=== PATIENT | male | born 1945 | race American Indian/Alaskan Native ===

== ENCOUNTER 2017-06-29 12:20 | Inpatient (IN) | payer MEDICARE, MEDICAID ==
[~2017-06-29] VITALS: Ht 182.9 cm; Wt 71.4 kg
[~2017-06-29 12:20] MED LIST: ASPI-612 PO; ATEN-169 PO; ATOR20TA PO; CLOP75TA35 PO; HCTZ25T PO; LISI10TA4 PO; NITR0.4T51 SL
[2017-06-29] MEDS ORDERED: LIDOcaine 5% patch TP ONE (12:50)
[2017-06-29] MEDS ORDERED: acetaminophen 325mg tablet PO ONE (12:50)
[2017-06-29 13:29] LABS: BASOPHILS % (AUTO) 0.5 % (0-1); EOSINOPHILS # (AUTO) 0.2 X10'3 (0-0.9); EOSINOPHILS % (AUTO) 1.7 % (0-6); HEMATOCRIT 39.7 % (42.0-52.0); HEMOGLOBIN 13.9 g/dl (14.0-17.9); LYMPHOCYTES # (AUTO) 0.9 X10'3 (1.1-4.8); LYMPHOCYTES % (AUTO) 10.4 % (21-51); MEAN CORPUSCULAR HEMOGLOBIN 31.8 PG (27.0-31.0); MEAN CORPUSCULAR HGB CONC 34.9 % (33.0-36.5); MEAN CORPUSCULAR VOLUME 91.1 FL (78-98); MEAN PLATELET VOLUME 7.5 FL (7.4-10.4); MONOCYTES # (AUTO) 0.7 X10'3 (0-0.9); MONOCYTES % (AUTO) 7.3 % (2-12); NEUTROPHILS # (AUTO) 7.3 X10'3 (1.8-7.7); NEUTROPHILS % (AUTO) 80.1 % (42-75); PLATELET COUNT 216 X10'3 (140-440); RED BLOOD COUNT 4.36 X10'6 (4.70-6.10); RED CELL DISTRIBUTION WIDTH 14.8 % (11.5-14.5); WHITE BLOOD COUNT 9.1 X10'3 (4.5-11.0)
[2017-06-29 13:45] LABS: ALANINE AMINOTRANSFERASE 27 U/L (12-78); ALBUMIN 3.2 G/DL (3.4-5.0); ALBUMIN/GLOBULIN RATIO 0.7 (1.1-1.5); ANION GAP 11 (8-16); ASPARTATE AMINO TRANSFERASE 71 U/L (10-37); BILIRUBIN,TOTAL 0.9 MG/DL (0.1-1.0); BLOOD UREA NITROGEN 14 MG/DL (7-18); BUN/CREATININE RATIO 16.9 (5.4-32.0); CALCIUM 9.3 MG/DL (8.5-10.1); CHLORIDE 101 MMOL/L (99-107); CREATININE 0.83 MG/DL (0.60-1.10); GLUCOSE 104 MG/DL (70-104); POTASSIUM 3.7 MMOL/L (3.5-5.1); SODIUM 137 MMOL/L (135-145); TOTAL CARBON DIOXIDE 25.4 MMOL/L (24-32); TOTAL PROTEIN 7.7 G/DL (6.4-8.2); eGFR > 90 ML/MIN
[2017-06-29 13:46] LABS: ALKALINE PHOSPHATASE 143 IU/L (46-116)
[2017-06-29] MEDS ORDERED: aspirin 325mg tablet PO ONE (14:10)
[2017-06-29 14:26] LABS: CLARITY,URINE CLOUDY (Clear); COLOR,URINE YELLOW (Yellow); GLUCOSE, URINE NEGATIVE (Neg); KETONES,URINE NEGATIVE (Neg); LEUKOCYTE ESTERASE ,URINE NEGATIVE (Neg); NITRITES, URINE NEGATIVE (Neg); OCCULT BLOOD,URINE TRACE-INTACT (Neg); PROTEIN,URINE TRACE mg/dl (Neg); UROBILINOGEN,URINE 0.2 E.U/dL (0.2-1.0)
[2017-06-29 14:27] LABS: UA COLLECTION TYPE CLN CATCH MIDSTREAM
[2017-06-29 14:44] LABS: MUCUS STRANDS MODERATE /LPF (Neg); SQUAMOUS EPITHELIAL CELL,UR FEW /LPF (FEW)
[2017-06-29 14:45] LABS: BACTERIA,URINE 2+ /HPF (Neg); RBC,URINE 0-2 /HPF (0-2); WBC,URINE 0-4 /HPF (0-4)
[2017-06-29] MEDS ORDERED: ondansetron/PF 4mg/2ml inj IV PRN (15:50)
[2017-06-29] MEDS ORDERED: mag hydrox/Alum hydrox/simeth 30ml oral suspension PO PRN (15:50)
[2017-06-29] MEDS ORDERED: acetaminophen 325mg tablet PO PRN ×2 (15:50)
[2017-06-29] MEDS ORDERED: magnesium hydroxide 30ml (MOM) UD suspension PO PRN (15:50)
[2017-06-29] MEDS ORDERED: CLOP75TA33 PO (16:00)
[2017-06-29] MEDS ORDERED: iohexol 300mg/ml 100ml inj. ONE ×2 (16:43→16:44)
[2017-06-29] MEDS: normal saline 1000ml 1,000 ML IV SCH (16:47)
[2017-06-29 17:45] VITALS: BP 169/86
[2017-06-29 18:01] VITALS: BP 158/72
[2017-06-29 19:00] VITALS: BP 136/74
[2017-06-29] MEDS ORDERED: diatr meglu/diatrizoate 30ml oral sol.-(3 dose) bottle PO SCH (21:00)
[2017-06-29 23:00] VITALS: BP 123/58
[2017-06-29] MEDS: HYDROcodone/acetaminophen 5mg/325mg tablet PO PRN (23:57)
[2017-06-30 01:18] LABS: BASOPHILS % (AUTO) 0.2 % (0-1); EOSINOPHILS # (AUTO) 0.1 X10'3 (0-0.9); EOSINOPHILS % (AUTO) 1.4 % (0-6); HEMATOCRIT 37.3 % (42.0-52.0); HEMOGLOBIN 12.6 g/dl (14.0-17.9); LYMPHOCYTES # (AUTO) 0.7 X10'3 (1.1-4.8); LYMPHOCYTES % (AUTO) 7.8 % (21-51); MEAN CORPUSCULAR HGB CONC 33.8 % (33.0-36.5); MEAN CORPUSCULAR VOLUME 91.8 FL (78-98); MEAN PLATELET VOLUME 7.6 FL (7.4-10.4); MONOCYTES # (AUTO) 0.9 X10'3 (0-0.9); MONOCYTES % (AUTO) 10.5 % (2-12); NEUTROPHILS # (AUTO) 7.2 X10'3 (1.8-7.7); NEUTROPHILS % (AUTO) 80.1 % (42-75); PLATELET COUNT 194 X10'3 (140-440); RED BLOOD COUNT 4.07 X10'6 (4.70-6.10); RED CELL DISTRIBUTION WIDTH 13.9 % (11.5-14.5); WHITE BLOOD COUNT 8.9 X10'3 (4.5-11.0)
[2017-06-30 01:21] LABS: ALBUMIN 2.5 G/DL (3.4-5.0); ANION GAP 8 (8-16); BLOOD UREA NITROGEN 16 MG/DL (7-18); BUN/CREATININE RATIO 21.9 (5.4-32.0); CALCIUM 8.9 MG/DL (8.5-10.1); CHLORIDE 105 MMOL/L (99-107); CREATININE 0.73 MG/DL (0.60-1.10); GLUCOSE 139 MG/DL (70-104); POTASSIUM 3.6 MMOL/L (3.5-5.1); SODIUM 140 MMOL/L (135-145); TOTAL CARBON DIOXIDE 27.2 MMOL/L (24-32); eGFR > 90 ML/MIN
[2017-06-30] MEDS: normal saline 1000ml 1,000 ML IV SCH ×2 (01:48→05:28)
[2017-06-30 03:00] VITALS: BP 134/74
[2017-06-30 06:00] VITALS: BP 143/71
[2017-06-30] MEDS: HYDROcodone/acetaminophen 5mg/325mg tablet PO PRN ×2 (08:06→21:23)
[2017-06-30 11:00] VITALS: BP 141/79
[2017-06-30 15:00] VITALS: BP 105/56
[2017-06-30] MEDS ORDERED: nitroGLYCERIN 0.4mg SUBLingual tab SL SCH (15:55)
[2017-06-30] MEDS ORDERED: GABA-532 PO (16:30)
[2017-06-30] MEDS ORDERED: HYDR25TA4 PO (16:31)
[2017-06-30] MEDS ORDERED: ROSU5TAB PO (16:31)
[2017-06-30] MEDS ORDERED: ALBU18HF2 INH (16:32)
[2017-06-30 19:00] VITALS: BP 184/72
[2017-06-30 23:00] VITALS: BP 135/73
[2017-07-01 03:00] VITALS: BP 140/71
[2017-07-01] MEDS: HYDROcodone/acetaminophen 5mg/325mg tablet PO PRN (03:47)
[2017-07-01 05:51] LABS: BASOPHILS % (AUTO) 0.2 % (0-1); EOSINOPHILS # (AUTO) 0.1 X10'3 (0-0.9); EOSINOPHILS % (AUTO) 1.8 % (0-6); HEMATOCRIT 34.3 % (42.0-52.0); LYMPHOCYTES # (AUTO) 0.7 X10'3 (1.1-4.8); LYMPHOCYTES % (AUTO) 8.3 % (21-51); MEAN CORPUSCULAR HEMOGLOBIN 31.6 PG (27.0-31.0); MEAN CORPUSCULAR HGB CONC 34.9 % (33.0-36.5); MEAN CORPUSCULAR VOLUME 90.6 FL (78-98); MEAN PLATELET VOLUME 7.7 FL (7.4-10.4); MONOCYTES # (AUTO) 0.8 X10'3 (0-0.9); MONOCYTES % (AUTO) 10.4 % (2-12); NEUTROPHILS # (AUTO) 6.3 X10'3 (1.8-7.7); NEUTROPHILS % (AUTO) 79.3 % (42-75); PLATELET COUNT 175 X10'3 (140-440); RED BLOOD COUNT 3.79 X10'6 (4.70-6.10); RED CELL DISTRIBUTION WIDTH 14.6 % (11.5-14.5); WHITE BLOOD COUNT 7.9 X10'3 (4.5-11.0)
[2017-07-01 06:00] VITALS: BP 140/83
[2017-07-01 06:13] LABS: ALBUMIN 2.2 G/DL (3.4-5.0); ANION GAP 12 (8-16); BLOOD UREA NITROGEN 13 MG/DL (7-18); BUN/CREATININE RATIO 19.7 (5.4-32.0); CALCIUM 8.4 MG/DL (8.5-10.1); CHLORIDE 104 MMOL/L (99-107); CREATININE 0.66 MG/DL (0.60-1.10); GLUCOSE 105 MG/DL (70-104); POTASSIUM 3.1 MMOL/L (3.5-5.1); SODIUM 139 MMOL/L (135-145); TOTAL CARBON DIOXIDE 23.2 MMOL/L (24-32); eGFR > 90 ML/MIN
[2017-07-01] MEDS ORDERED: magnesium 2GM in 50ml NS 50 ML IV PRN (06:45)
[2017-07-01] MEDS ORDERED: potassium Cl 20 mEq SR tablet PO PRN (06:45)
[2017-07-01] MEDS ORDERED: potassium Cl 40MEQ/NS 500ml 500 ML IV PRN ×2 (06:45)
[2017-07-01] MEDS ORDERED: magnesium Cl slow-release 64mg tablet PO PRN (06:45)
[2017-07-01] MEDS: potassium Cl 20 mEq SR tablet PO PRN ×2 (07:23→11:59)
[2017-07-01] MEDS ORDERED: lisinopril 10 MG tablet PO SCH (08:00)
[2017-07-01] MEDS ORDERED: nitroGLYCERIN 0.4mg SUBLingual tab SL PRN (10:34)
[2017-07-01 11:00] VITALS: BP 118/79
[2017-07-01] MEDS ORDERED: METO-395 PO (17:08)
== END 2017-07-01 16:56 | disposition home health service (06) | DRG 180 ==
LOC: ER 12:20 → ED HOLD 15:48 → PCU 3S 17:42
PROVIDERS: ADMIT Hospitalist; ATTEND Family Medicine
PROC: B0201ZZ Computerized Tomography (CT Scan) of Brain using Low Osmolar Contrast (ICD-10-PCS; principal; 2017-06-29)
PROC: BW251ZZ Computerized Tomography (CT Scan) of Chest, Abdomen and Pelvis using Low Osmolar Contrast (ICD-10-PCS; 2017-06-29)
DX: C34.90 Malignant neoplasm of unspecified part of unspecified bronchus or lung (principal); I21.A1 Myocardial infarction type 2; C78.7 Secondary malignant neoplasm of liver and intrahepatic bile duct; G62.9 Polyneuropathy, unspecified; G89.29 Other chronic pain; Z60.2 Problems related to living alone; R09.02 Hypoxemia; I25.10 Atherosclerotic heart disease of native coronary artery without angina pectoris; E78.5 Hyperlipidemia, unspecified; I10 Essential (primary) hypertension; I73.9 Peripheral vascular disease, unspecified; N40.0 Benign prostatic hyperplasia without lower urinary tract symptoms; Z53.29 Procedure and treatment not carried out because of patient's decision for other reasons; I25.2 Old myocardial infarction; Z95.1 Presence of aortocoronary bypass graft; Z79.02 Long term (current) use of antithrombotics/antiplatelets; Z79.82 Long term (current) use of aspirin; Z79.899 Other long term (current) drug therapy; Z80.0 Family history of malignant neoplasm of digestive organs
CPT/HCPCS: 36415; 70450; 71100; 71250; 71260; 74177; 80048; 80053; 81001; 82140; 83735; 84484; 85025; 87070; 93005; 93306; 99285; J7030; Q9967

== ENCOUNTER 2017-07-01 17:37 | Inpatient (IN) | payer MEDICARE, MEDICAID ==
[~2017-07-01] VITALS: Ht 170.2 cm; Wt 75.0 kg
[~2017-07-01 17:37] MED LIST changes: +ALBU18HF2 INH; -ASPI-612 PO; -ATEN-169 PO; -ATOR20TA PO; +CLOP75TA33 PO; -CLOP75TA35 PO; +GABA-532 PO; -HCTZ25T PO; +HYDR25TA4 PO; +METO-395 PO; +ROSU5TAB PO
[2017-07-01] MEDS ORDERED: normal saline 1000ML IV soln IVB ONE (18:40)
[2017-07-01 19:15] LABS: BASOPHILS % (AUTO) 0.1 % (0-1); EOSINOPHILS # (AUTO) 0.2 X10'3 (0-0.9); EOSINOPHILS % (AUTO) 1.6 % (0-6); HEMATOCRIT 37.7 % (42.0-52.0); HEMOGLOBIN 13.1 g/dl (14.0-17.9); LYMPHOCYTES # (AUTO) 0.4 X10'3 (1.1-4.8); MEAN CORPUSCULAR HEMOGLOBIN 31.9 PG (27.0-31.0); MEAN CORPUSCULAR HGB CONC 34.7 % (33.0-36.5); MEAN CORPUSCULAR VOLUME 91.9 FL (78-98); MEAN PLATELET VOLUME 7.6 FL (7.4-10.4); MONOCYTES # (AUTO) 0.7 X10'3 (0-0.9); MONOCYTES % (AUTO) 7.1 % (2-12); NEUTROPHILS # (AUTO) 8.9 X10'3 (1.8-7.7); NEUTROPHILS % (AUTO) 87.2 % (42-75); PLATELET COUNT 188 X10'3 (140-440); RED CELL DISTRIBUTION WIDTH 14.6 % (11.5-14.5); WHITE BLOOD COUNT 10.2 X10'3 (4.5-11.0)
[2017-07-01 19:27] LABS: INR 1.2 INR; PARTIAL THROMBOPLASTIN TIME 26 SECONDS (22-32)
[2017-07-01 19:35] LABS: ALANINE AMINOTRANSFERASE 23 U/L (12-78); ALBUMIN 2.6 G/DL (3.4-5.0); ALBUMIN/GLOBULIN RATIO 0.6 (1.1-1.5); ALKALINE PHOSPHATASE 132 IU/L (46-116); ANION GAP 10 (8-16); ASPARTATE AMINO TRANSFERASE 32 U/L (10-37); BILIRUBIN,TOTAL 0.7 MG/DL (0.1-1.0); BLOOD UREA NITROGEN 18 MG/DL (7-18); BUN/CREATININE RATIO 19.4 (5.4-32.0); CHLORIDE 104 MMOL/L (99-107); CREATININE 0.93 MG/DL (0.60-1.10); ETHANOL < 0.010 GM/DL (0.0-0.010); GLUCOSE 127 MG/DL (70-104); POTASSIUM 3.5 MMOL/L (3.5-5.1); SODIUM 140 MMOL/L (135-145); TOTAL CARBON DIOXIDE 26.1 MMOL/L (24-32); TOTAL PROTEIN 6.7 G/DL (6.4-8.2); TROPONIN I 0.08 NG/ML (0.0-0.05); eGFR 80 ML/MIN
[2017-07-01 22:11] LABS: CLARITY,URINE CLEAR (Clear); GLUCOSE, URINE NEGATIVE (Neg); KETONES,URINE 15 mg/dl (Neg); LEUKOCYTE ESTERASE ,URINE NEGATIVE (Neg); NITRITES, URINE NEGATIVE (Neg); OCCULT BLOOD,URINE TRACE-INTACT (Neg); PROTEIN,URINE TRACE mg/dl (Neg)
[2017-07-01 22:12] LABS: COLOR,URINE DARK YELLOW (Yellow); UA COLLECTION TYPE CLN CATCH MIDSTREAM
[2017-07-01 22:16] LABS: URINE AMPHETAMINE SCREEN NEGATIVE (Neg); URINE BARBITUATE SCREEN NEGATIVE (Neg); URINE BENZODIAZEPINES SCREEN NEGATIVE (Neg); URINE CANNABINOID SCREEN NEGATIVE (Neg); URINE COCAINE SCREEN NEGATIVE (Neg); URINE METHADONE SCREEN NEGATIVE (Neg); URINE OPIATE SCREEN POSITIVE (Neg); URINE PHENCYCLIDINE SCREEN NEGATIVE (Neg)
[2017-07-01 22:21] LABS: AMORPHOUS URATES 1+; BACTERIA,URINE FEW /HPF (Neg); HYALINE CASTS 0-3 /LPF (NEGATIVE); MUCUS STRANDS MODERATE /LPF (Neg); RBC,URINE 0-2 /HPF (0-2); SQUAMOUS EPITHELIAL CELL,UR FEW /LPF (FEW); WBC,URINE 0-4 /HPF (0-4)
[2017-07-01 22:22] LABS: COARSE GRANULAR CAST 0-3 /LPF (NEGATIVE)
[2017-07-02] MEDS ORDERED: nitroGLYCERIN 0.4mg SUBLingual tab SL SCH (01:00)
[2017-07-02] MEDS ORDERED: HYDROcodone/acetaminophen 5mg/325mg tablet PO PRN (01:05)
[2017-07-02] MEDS ORDERED: HYDROmorphone inj. 0.5 MG/0.5 ML DISP.SYRIN IV PRN ×2 (01:05)
[2017-07-02] MEDS ORDERED: diphenhydrAMINE 25mg capsule PO PRN (01:05)
[2017-07-02] MEDS ORDERED: acetaminophen 650mg rectal suppository RC PRN (01:05)
[2017-07-02] MEDS ORDERED: bisacodyl 10mg suppository rectal RC PRN (01:05)
[2017-07-02] MEDS ORDERED: enoxaparin 80mg/0.8ml syringe SUBCUT SCH (01:05)
[2017-07-02] MEDS ORDERED: diphenhydrAMINE 50 mg/ml inj IV PRN (01:05)
[2017-07-02] MEDS ORDERED: magnesium hydroxide 30ml (MOM) UD suspension PO PRN (01:05)
[2017-07-02] MEDS ORDERED: ondansetron/PF 4mg/2ml inj IV PRN (01:05)
[2017-07-02] MEDS ORDERED: mag hydrox/Alum hydrox/simeth 30ml oral suspension PO PRN (01:05)
[2017-07-02] MEDS ORDERED: albuterol 2.5 MG/3 ML nebule NEB PRN (01:05)
[2017-07-02] MEDS ORDERED: metoclopramide 5 mg/ml inj IV PRN (01:05)
[2017-07-02] MEDS ORDERED: acetaminophen 325mg tablet PO PRN ×2 (01:05)
[2017-07-02] MEDS ORDERED: morphine 4 MG/ML inj SYRINge IV PRN (01:05)
[2017-07-02] MEDS: normal saline 1000ml 1,000 ML IV SCH ×3 (01:28→21:01)
[2017-07-02 01:51] LABS: PHOSPHORUS 3.3 MG/DL (2.3-4.5)
[2017-07-02] MEDS: docusate sod 100mg capsule PO SCH ×2 (07:48→20:03)
[2017-07-02] MEDS: LORazepam 1 MG tablet PO SCH ×2 (07:48→15:12)
[2017-07-02] MEDS: atorvastatin 20mg tablet PO SCH (07:49)
[2017-07-02] MEDS: metoprolol succinate 25mg (24-HOUR) SR. Tablet PO SCH (07:49)
[2017-07-02] MEDS: lisinopril 10 MG tablet PO SCH (07:50)
[2017-07-02] MEDS: clopidogrel 75mg tablet PO SCH (07:50)
[2017-07-02] MEDS: aspirin 81mg tab.chew PO SCH (07:51)
[2017-07-02] MEDS: gabapentin 300mg capsule PO SCH ×2 (07:51→15:12)
[2017-07-02] MEDS: pantoprazole 40mg Tablet.DR PO SCH (07:51)
[2017-07-02 11:00] VITALS: BP 140/77
[2017-07-02 18:00] VITALS: BP 148/54
[2017-07-02] MEDS ORDERED: temazepam 15mg capsule PO PRN (21:00)
[2017-07-02 22:00] VITALS: BP 135/78
[2017-07-03] MEDS: LORazepam 1 MG tablet PO SCH ×4 (05:03→23:44)
[2017-07-03] MEDS: gabapentin 300mg capsule PO SCH ×4 (05:03→23:44)
[2017-07-03 05:31] LABS: BASOPHILS % (AUTO) 0.3 % (0-1); EOSINOPHILS # (AUTO) 0.1 X10'3 (0-0.9); HEMATOCRIT 34.1 % (42.0-52.0); HEMOGLOBIN 11.9 g/dl (14.0-17.9); LYMPHOCYTES # (AUTO) 0.9 X10'3 (1.1-4.8); LYMPHOCYTES % (AUTO) 11.4 % (21-51); MEAN CORPUSCULAR HEMOGLOBIN 31.6 PG (27.0-31.0); MEAN CORPUSCULAR VOLUME 90.2 FL (78-98); MEAN PLATELET VOLUME 7.7 FL (7.4-10.4); MONOCYTES # (AUTO) 0.8 X10'3 (0-0.9); MONOCYTES % (AUTO) 10.9 % (2-12); NEUTROPHILS # (AUTO) 5.7 X10'3 (1.8-7.7); NEUTROPHILS % (AUTO) 75.4 % (42-75); PLATELET COUNT 165 X10'3 (140-440); RED BLOOD COUNT 3.78 X10'6 (4.70-6.10); RED CELL DISTRIBUTION WIDTH 14.4 % (11.5-14.5); WHITE BLOOD COUNT 7.5 X10'3 (4.5-11.0)
[2017-07-03 05:55] LABS: ALANINE AMINOTRANSFERASE 19 U/L (12-78); ALBUMIN 2.2 G/DL (3.4-5.0); ALBUMIN/GLOBULIN RATIO 0.6 (1.1-1.5); ALKALINE PHOSPHATASE 126 IU/L (46-116); ANION GAP 11 (8-16); ASPARTATE AMINO TRANSFERASE 39 U/L (10-37); BILIRUBIN,TOTAL 0.7 MG/DL (0.1-1.0); BLOOD UREA NITROGEN 10 MG/DL (7-18); BUN/CREATININE RATIO 16.1 (5.4-32.0); CALCIUM 8.3 MG/DL (8.5-10.1); CHLORIDE 103 MMOL/L (99-107); CREATININE 0.62 MG/DL (0.60-1.10); GLUCOSE 114 MG/DL (70-104); SODIUM 138 MMOL/L (135-145); TOTAL CARBON DIOXIDE 24.4 MMOL/L (24-32); TOTAL PROTEIN 5.8 G/DL (6.4-8.2); eGFR > 90 ML/MIN
[2017-07-03 05:59] LABS: POTASSIUM 2.9 MMOL/L (3.5-5.1)
[2017-07-03 06:00] VITALS: BP 130/74
[2017-07-03] MEDS ORDERED: potassium Cl 40MEQ/NS 500ml 500 ML IV PRN ×2 (06:10)
[2017-07-03] MEDS ORDERED: potassium Cl 20 mEq SR tablet PO PRN (06:10)
[2017-07-03] MEDS: clopidogrel 75mg tablet PO SCH (07:13)
[2017-07-03] MEDS: pantoprazole 40mg Tablet.DR PO SCH (07:13)
[2017-07-03] MEDS: potassium Cl 20 mEq SR tablet PO PRN ×3 (07:13→17:06)
[2017-07-03] MEDS: lisinopril 10 MG tablet PO SCH (07:13)
[2017-07-03] MEDS: aspirin 81mg tab.chew PO SCH (07:13)
[2017-07-03] MEDS: docusate sod 100mg capsule PO SCH ×2 (07:13→23:45)
[2017-07-03] MEDS: metoprolol succinate 25mg (24-HOUR) SR. Tablet PO SCH (07:13)
[2017-07-03] MEDS: atorvastatin 20mg tablet PO SCH (07:13)
[2017-07-03 10:00] VITALS: BP 117/67
[2017-07-03] MEDS: morphine 4 MG/ML inj SYRINge IV PRN (17:17)
[2017-07-03 18:00] VITALS: BP 165/80
[2017-07-03] MEDS: normal saline 1000ml 1,000 ML IV SCH (21:08)
[2017-07-03 22:00] VITALS: BP 151/83
[2017-07-04 05:32] LABS: BASOPHILS % (AUTO) 0.2 % (0-1); EOSINOPHILS # (AUTO) 0.2 X10'3 (0-0.9); EOSINOPHILS % (AUTO) 2.2 % (0-6); HEMATOCRIT 36.7 % (42.0-52.0); HEMOGLOBIN 12.7 g/dl (14.0-17.9); LYMPHOCYTES # (AUTO) 0.9 X10'3 (1.1-4.8); LYMPHOCYTES % (AUTO) 12.2 % (21-51); MEAN CORPUSCULAR HEMOGLOBIN 31.5 PG (27.0-31.0); MEAN CORPUSCULAR HGB CONC 34.6 % (33.0-36.5); MEAN CORPUSCULAR VOLUME 90.8 FL (78-98); MONOCYTES % (AUTO) 12.5 % (2-12); NEUTROPHILS # (AUTO) 5.6 X10'3 (1.8-7.7); NEUTROPHILS % (AUTO) 72.9 % (42-75); PLATELET COUNT 165 X10'3 (140-440); RED BLOOD COUNT 4.04 X10'6 (4.70-6.10); RED CELL DISTRIBUTION WIDTH 14.8 % (11.5-14.5); WHITE BLOOD COUNT 7.7 X10'3 (4.5-11.0)
[2017-07-04 06:00] VITALS: BP 159/88
[2017-07-04 06:25] LABS: ALANINE AMINOTRANSFERASE 20 U/L (12-78); ALBUMIN 2.1 G/DL (3.4-5.0); ALBUMIN/GLOBULIN RATIO 0.6 (1.1-1.5); ALKALINE PHOSPHATASE 137 IU/L (46-116); ANION GAP 10 (8-16); ASPARTATE AMINO TRANSFERASE 39 U/L (10-37); BILIRUBIN,TOTAL 0.8 MG/DL (0.1-1.0); BLOOD UREA NITROGEN 8 MG/DL (7-18); BUN/CREATININE RATIO 12.1 (5.4-32.0); CALCIUM 8.3 MG/DL (8.5-10.1); CHLORIDE 102 MMOL/L (99-107); CREATININE 0.66 MG/DL (0.60-1.10); GLUCOSE 106 MG/DL (70-104); POTASSIUM 3.5 MMOL/L (3.5-5.1); SODIUM 136 MMOL/L (135-145); TOTAL CARBON DIOXIDE 23.9 MMOL/L (24-32); TOTAL PROTEIN 5.9 G/DL (6.4-8.2); eGFR > 90 ML/MIN
[2017-07-04] MEDS: pantoprazole 40mg Tablet.DR PO SCH (09:26)
[2017-07-04] MEDS: aspirin 81mg tab.chew PO SCH (09:26)
[2017-07-04] MEDS: clopidogrel 75mg tablet PO SCH (09:27)
[2017-07-04] MEDS: atorvastatin 20mg tablet PO SCH (09:27)
[2017-07-04] MEDS: LORazepam 1 MG tablet PO SCH ×2 (09:27→16:51)
[2017-07-04] MEDS: gabapentin 300mg capsule PO SCH ×2 (09:27→16:51)
[2017-07-04] MEDS: docusate sod 100mg capsule PO SCH ×2 (09:27→20:13)
[2017-07-04] MEDS: lisinopril 10 MG tablet PO SCH (09:28)
[2017-07-04] MEDS: metoprolol succinate 25mg (24-HOUR) SR. Tablet PO SCH (09:28)
[2017-07-04 10:00] VITALS: BP 121/74
[2017-07-04] MEDS: normal saline 1000ml 1,000 ML IV SCH (10:57)
[2017-07-04] MEDS: enoxaparin 40mg/0.4ml syringe SUBCUT SCH (16:51)
[2017-07-04 18:00] VITALS: BP 146/79
[2017-07-04 22:00] VITALS: BP 122/66
[2017-07-05] MEDS: LORazepam 1 MG tablet PO SCH ×3 (00:23→16:18)
[2017-07-05] MEDS: gabapentin 300mg capsule PO SCH ×3 (00:23→16:18)
[2017-07-05 05:52] LABS: BASOPHILS % (AUTO) 0.1 % (0-1); EOSINOPHILS # (AUTO) 0.1 X10'3 (0-0.9); EOSINOPHILS % (AUTO) 1.9 % (0-6); HEMATOCRIT 33.9 % (42.0-52.0); HEMOGLOBIN 11.7 g/dl (14.0-17.9); LYMPHOCYTES # (AUTO) 0.9 X10'3 (1.1-4.8); LYMPHOCYTES % (AUTO) 11.4 % (21-51); MEAN CORPUSCULAR HEMOGLOBIN 31.4 PG (27.0-31.0); MEAN CORPUSCULAR HGB CONC 34.6 % (33.0-36.5); MEAN CORPUSCULAR VOLUME 90.7 FL (78-98); MEAN PLATELET VOLUME 7.8 FL (7.4-10.4); MONOCYTES # (AUTO) 1.1 X10'3 (0-0.9); MONOCYTES % (AUTO) 14.3 % (2-12); NEUTROPHILS # (AUTO) 5.5 X10'3 (1.8-7.7); NEUTROPHILS % (AUTO) 72.3 % (42-75); PLATELET COUNT 162 X10'3 (140-440); RED BLOOD COUNT 3.74 X10'6 (4.70-6.10); RED CELL DISTRIBUTION WIDTH 14.6 % (11.5-14.5); WHITE BLOOD COUNT 7.7 X10'3 (4.5-11.0)
[2017-07-05 06:00] VITALS: BP 136/78
[2017-07-05 06:38] LABS: ALANINE AMINOTRANSFERASE 25 U/L (12-78); ALBUMIN 1.9 G/DL (3.4-5.0); ALBUMIN/GLOBULIN RATIO 0.5 (1.1-1.5); ALKALINE PHOSPHATASE 135 IU/L (46-116); ANION GAP 9 (8-16); ASPARTATE AMINO TRANSFERASE 47 U/L (10-37); BILIRUBIN,TOTAL 0.8 MG/DL (0.1-1.0); BLOOD UREA NITROGEN 7 MG/DL (7-18); BUN/CREATININE RATIO 9.7 (5.4-32.0); CALCIUM 8.1 MG/DL (8.5-10.1); CHLORIDE 99 MMOL/L (99-107); CREATININE 0.72 MG/DL (0.60-1.10); GLUCOSE 115 MG/DL (70-104); MAGNESIUM 1.8 MG/DL (1.5-2.4); POTASSIUM 3.2 MMOL/L (3.5-5.1); SODIUM 134 MMOL/L (135-145); TOTAL CARBON DIOXIDE 26.3 MMOL/L (24-32); TOTAL PROTEIN 5.6 G/DL (6.4-8.2); eGFR > 90 ML/MIN
[2017-07-05] MEDS ORDERED: lactobacillus rhamnosus 10,000 MMU CELLS/CAPSULE PO SCH (08:00)
[2017-07-05] MEDS: pantoprazole 40mg Tablet.DR PO SCH (08:21)
[2017-07-05] MEDS: aspirin 81mg tab.chew PO SCH (08:21)
[2017-07-05] MEDS: atorvastatin 20mg tablet PO SCH (08:21)
[2017-07-05] MEDS: docusate sod 100mg capsule PO SCH ×2 (08:21→20:00)
[2017-07-05] MEDS: clopidogrel 75mg tablet PO SCH (08:21)
[2017-07-05] MEDS: lisinopril 10 MG tablet PO SCH (08:22)
[2017-07-05] MEDS: metoprolol succinate 25mg (24-HOUR) SR. Tablet PO SCH (08:22)
[2017-07-05] MEDS: enoxaparin 40mg/0.4ml syringe SUBCUT SCH (08:22)
[2017-07-05 10:00] VITALS: BP 117/51
[2017-07-05] MEDS: levoFLOXACIN 500mg tablet PO SCH (11:00)
[2017-07-05] MEDS ORDERED: LORazepam 2 mg/ml vial IV PRN (12:00)
[2017-07-05 18:00] VITALS: BP 134/51
[2017-07-05 22:00] VITALS: BP 117/70
[2017-07-06] MEDS: gabapentin 300mg capsule PO SCH ×4 (00:13→23:59)
[2017-07-06] MEDS: LORazepam 1 MG tablet PO SCH ×4 (00:13→23:59)
[2017-07-06 06:00] VITALS: BP 107/65
[2017-07-06] MEDS: metoprolol succinate 25mg (24-HOUR) SR. Tablet PO SCH (07:52)
[2017-07-06] MEDS: lisinopril 10 MG tablet PO SCH (07:52)
[2017-07-06] MEDS: docusate sod 100mg capsule PO SCH ×2 (07:52→20:25)
[2017-07-06] MEDS: HYDROcodone/acetaminophen 10/325mg tab PO PRN (08:02)
[2017-07-06 10:00] VITALS: BP 86/43
[2017-07-06] MEDS: levoFLOXACIN 500mg tablet PO SCH (12:29)
[2017-07-06] MEDS: lactobacillus rhamnosus 10,000 MMU CELLS/CAPSULE PO SCH (20:25)
[2017-07-06 22:00] VITALS: BP 123/67
[2017-07-07] MEDS: lactobacillus rhamnosus 10,000 MMU CELLS/CAPSULE PO SCH ×2 (08:00→20:00)
[2017-07-07] MEDS: gabapentin 300mg capsule PO SCH ×2 (08:00→15:13)
[2017-07-07] MEDS: docusate sod 100mg capsule PO SCH ×2 (08:00→20:00)
[2017-07-07] MEDS: lisinopril 10 MG tablet PO SCH (08:00)
[2017-07-07] MEDS: LORazepam 1 MG tablet PO SCH ×2 (08:00→15:13)
[2017-07-07] MEDS: metoprolol succinate 25mg (24-HOUR) SR. Tablet PO SCH (08:00)
[2017-07-07] MEDS: levoFLOXACIN 500mg tablet PO SCH (10:13)
[2017-07-07 11:31] VITALS: BP 172/85
[2017-07-07] MEDS: morphine 4 MG/ML inj SYRINge IV PRN (18:55)
[2017-07-07 22:00] VITALS: BP 129/74
[2017-07-08] MEDS: LORazepam 1 MG tablet PO SCH ×4 (00:59→23:31)
[2017-07-08] MEDS: gabapentin 300mg capsule PO SCH ×4 (00:59→23:31)
[2017-07-08] MEDS: morphine 4 MG/ML inj SYRINge IV PRN (05:54)
[2017-07-08] MEDS: metoprolol succinate 25mg (24-HOUR) SR. Tablet PO SCH (08:00)
[2017-07-08] MEDS: lisinopril 10 MG tablet PO SCH (08:00)
[2017-07-08] MEDS: lactobacillus rhamnosus 10,000 MMU CELLS/CAPSULE PO SCH ×2 (08:00→20:00)
[2017-07-08] MEDS: docusate sod 100mg capsule PO SCH ×2 (08:23→20:00)
[2017-07-08 10:00] VITALS: BP 107/44
[2017-07-08] MEDS: levoFLOXACIN 500mg tablet PO SCH (11:00)
[2017-07-08] MEDS: HYDROcodone/acetaminophen 10/325mg tab PO PRN ×2 (11:47→21:45)
[2017-07-08 22:00] VITALS: BP 129/81
[2017-07-09] MEDS: lactobacillus rhamnosus 10,000 MMU CELLS/CAPSULE PO SCH (08:00)
[2017-07-09] MEDS: metoprolol succinate 25mg (24-HOUR) SR. Tablet PO SCH (08:00)
[2017-07-09] MEDS: gabapentin 300mg capsule PO SCH (08:00)
[2017-07-09] MEDS: lisinopril 10 MG tablet PO SCH (08:00)
[2017-07-09] MEDS: docusate sod 100mg capsule PO SCH (08:00)
[2017-07-09] MEDS: LORazepam 1 MG tablet PO SCH (08:00)
[2017-07-09] MEDS: levoFLOXACIN 500mg tablet PO SCH (11:00)
== END 2017-07-09 12:21 | disposition hospice, home (50) | DRG 640 ==
LOC: ER 17:37 → ED HOLD 07-02 01:01 → ORTHO 4S 07-02 09:40
PROVIDERS: ADMIT Family Medicine; ATTEND Internal Medicine
DX: E86.0 Dehydration (principal); G93.40 Encephalopathy, unspecified; G93.1 Anoxic brain damage, not elsewhere classified; I11.0 Hypertensive heart disease with heart failure; C78.7 Secondary malignant neoplasm of liver and intrahepatic bile duct; I50.30 Unspecified diastolic (congestive) heart failure; J44.0 Chronic obstructive pulmonary disease with (acute) lower respiratory infection; C34.91 Malignant neoplasm of unspecified part of right bronchus or lung; R55 Syncope and collapse; E87.6 Hypokalemia; G89.29 Other chronic pain; I25.10 Atherosclerotic heart disease of native coronary artery without angina pectoris; J20.9 Acute bronchitis, unspecified; R62.50 Unspecified lack of expected normal physiological development in childhood; Z51.5 Encounter for palliative care; Z66 Do not resuscitate; I25.2 Old myocardial infarction; Z95.1 Presence of aortocoronary bypass graft; Z79.899 Other long term (current) drug therapy; Z79.01 Long term (current) use of anticoagulants; Z79.82 Long term (current) use of aspirin; Z79.02 Long term (current) use of antithrombotics/antiplatelets
CPT/HCPCS: 36415; 70450; 71045; 80053; 80305; 80320; 81001; 82140; 82948; 83735; 83880; 84100; 84132; 84484; 85025; 85610; 85730; 87070; 93005; 94760; 96360; 96361; 99285; A4315; A4344; J1650; J2270; J7030